=== PATIENT | female | born 1995 | race Caucasian/White ===

== ENCOUNTER 2018-12-26 20:48 | Inpatient (IN) | payer BC, OTHER ==
[~2018-12-26] VITALS: Ht 149.9 cm; Wt 44.6 kg
[2018-12-26 21:09] VITALS: Ht 149.9 cm; Wt 44.6 kg
--- NOTE | 2018-12-26 21:25 | NUR ---
PT MOVED FROM HALLWAY TO ED BED 8 AT THIS TIME FOR CLOSER MONITORING. PLACED ON FULL CM.
--- NOTE | 2018-12-26 21:28 | NUR ---
PT PRESENTS TO ED WITH C/O NAUSEA, VOMITING, AND GENERALIZED WEAKNESS. PT MOTHER STATES THAT SHE IS AUTISTIC. PT WAS OUTSIDE ALL DAY PLAYING IN A SOFTBALL GAME WHEN SHE BECAME DIZZY FELT WEAK, AND BEGAN VOMITING. PT MOTHER STATES THAT SHE WAS TAKEN OUT OF THE GAME TO REST AND WHEN THEY RETURNED HOME SHE TOOK A COLD SHOWER AND LAYED DOWN. PT BEGAN TO VOMIT AGAIN AT THIS TIME. PT NOTED WITH FINE TREMORS BUT STATES THAT SHE IS NOT COLD. PT HR NOTED AT 100 AT THIS TIME. PT DENIES PAIN ANYWHERE. PT RESTING IN A POSITION OF COMFORT WITH MOTHER AT SIDE. PLACED ON FULL CM. DR GARCIA AT BEDSIDE.
--- NOTE | 2018-12-26 21:50 | NUR ---
PT UNABLE TO PROVIDE URINE SAMPLE AT THIS TIME. PT DENIES ANY CHANCE OF .
[2018-12-26 21:58] LABS: BASOPHIL % 0.5 % (0-2); PLATELET COUNT 161 x10^3mcL (130-400); RED CELL DISTRIBUTION WIDTH 11.8 % (11.5-14.5)
[2018-12-26 22:11] LABS: ALBUMIN 3.6 g/dL (3.4-5.0); ALKALINE PHOSPHATASE 57 U/L (46-116); ALT/SGPT 17 U/L (14-59); AST/SGOT 22 U/L (15-37); BILIRUBIN TOTAL 0.5 mg/dL (0.20-1.00); CALCIUM 7.3 mg/dL (8.5-10.1); CARBON DIOXIDE 20.2 mmol/L (21-32); CHLORIDE SERUM 89 mmol/L (98-107); CREATININE SERUM 0.5 mg/dL (0.6-1.0); GFR1 > 60 mL/min; GLUCOSE SERUM 120 mg/dL (74-106)
[2018-12-26 22:14] LABS: POTASSIUM SERUM 2.3 mmol/L (3.5-5.1); SODIUM SERUM 122 mmol/L (136-145)
[2018-12-26] MEDS ORDERED: ZOLOFT50 MG PO (22:49)
[2018-12-26] MEDS ORDERED: CHLORPROMAZINE50 M1 PO (22:50)
[2018-12-26] MEDS ORDERED: TRAZODONE50 M1 PO (22:51)
[2018-12-26] MEDS ORDERED: OXCARBAZEPINE300 M1 PO (22:51)
[2018-12-26] MEDS ORDERED: VIS25 PO (22:51)
--- NOTE | 2018-12-26 22:52 | NUR ---
PT MOTHER STATES TO SODIUM CHLORIDE TABLETS BID 1000MG UNABLE TO FIND ON MED REC.
--- NOTE | 2018-12-26 23:03 | NUR ---
PT REPORT CALLED TO [facility] NURSE TO ASSUME PT CARE.
--- NOTE | 2018-12-26 23:11 | NUR ---
PT TRANSFERRED TO [facility] BY [facility] BY JULIAN VERA AND [facility] EMT. PT ON FULL CM FOR TRANSPORT. PT AOX4, RESP EVEN AND UNLABORED, NO ACUTE DISTRESS NOTED. PIPPA AWARE OF 2ND BAG OF POTASSIUM SENT WITH PT TO THE FLOOR. PT CARE TO BE CONTINUED BY PIPPA VERA. PT MOTHER AT BEDSIDE.
[2018-12-26 23:29] VITALS: BP 116/74
--- NOTE | 2018-12-26 23:32 | NUR ---
RECEIVED PT FROM ED VIA JOSE. ORIENTED PT TO ROOM AND SURROUNDINGS. IV NOTED TO LAC PATENT AND INTACT. INSTRUCTED PT ON THE USE OF CALL LIGHT FOR ASSISTANCE. ENDORSED PT TO PRIMARY NURSE PIPPA
--- NOTE | 2018-12-27 00:30 | NUR ---
RECEIVED PT FROM ER AAOX4 , PT DENY N/V AT THE MOMENT , PT CAME WITH K-RIDER 20MEQ 1ST BAG TA FOR 2HRS PER ER NURSE I'LL CON'T POTASSIUM INFUSION ORDERED .LUNG SOUNDS CTA , PIV INTACT . ABD SOFT BS ACTIVE X4 . ORIENTED PT TO THE ROOM CALL LIGHT WITHIN PT'S REACH .
--- NOTE | 2018-12-27 01:37 | NUR ---
1st BAG OF POTASSIUM STILL RA 30ML/HR PT'S NOT ABLE TO TOLERATE 50ML/HR ORDERED .
[2018-12-27 02:11] LABS: microscopic required? NO
[2018-12-27 02:31] LABS: UA SPECIFIC GRAVITY <=1.005 (1.005-1.035); urine erythrocyte NEGATIVE (NEGATIVE)
[2018-12-27 02:45] LABS: AMPHETAMINE QUAL UR NONE DETECTED (See below)
--- NOTE | 2018-12-27 03:42 | NUR ---
I HAVE REVIEWED THE DATA COLLECTION BY PROPERTY VALUER (NAME):PIPPA WARREN ENTERED ON (DATE/TIME): I CONCUR WITH THE DATA AND ANY EXCEPTIONS OR COMMENTS ARE LISTED BELOW:
--- NOTE | 2018-12-27 05:01 | NUR ---
3rd DOSE OF POTASSIUM 20MEQ/LIDOCAINE 1% GIVEN PT TOLERATED WELL . PT RECEIVED TOTAL OF 60MEQ OF POTASSIUM ORDERED . PT DENY N/V AT THE MOMENT , PIV INTACT INFUSING WELL .
[2018-12-27 05:44] VITALS: BP 101/63
[2018-12-27 07:16] LABS: BASOPHIL % 0.3 % (0-2); PLATELET COUNT 185 x10^3mcL (130-400); RED CELL DISTRIBUTION WIDTH 11.7 % (11.5-14.5)
--- NOTE | 2018-12-27 07:38 | NUR ---
RECEIVED SLEEPING BUT AROUSABLE. IN NO ACUTE RESP. DISTRESS. MOTHER AT BEDSIDE. VS WNL. IVF INFUSING WELL AND SITE CLEAR. CALL LIGHT WITHIN REACH. WILL CONTINUE WITH PLAN OF CARE.
[2018-12-27 07:42] LABS: CARBON DIOXIDE 20.8 mmol/L (21-32); CHLORIDE SERUM 108 mmol/L (98-107); CREATININE SERUM 0.5 mg/dL (0.6-1.0); GFR1 > 60 mL/min; GLUCOSE SERUM 94 mg/dL (74-106); MAGNESIUM 2.2 mg/dL (1.8-2.4); PHOSPHOROUS 3.3 mg/dL (2.5-4.9); POTASSIUM SERUM 4.3 mmol/L (3.5-5.1); SODIUM SERUM 140 mmol/L (136-145)
[2018-12-27 07:50] VITALS: BP 94/47
--- NOTE | 2018-12-27 12:00 | NUR ---
AM ROUNDS DONE BY DR. OMER AND MEDICAL TEAM. PLAN TO DC HOME TODAY. PT AGREED WITH PLAN. RESTING IN BED. NO ACUTE DISTRESS. NO C/O PAIN OR DISCOMFORT.
[2018-12-27 15:32] VITALS: BP 94/47
--- NOTE | 2018-12-27 15:44 | NUR ---
RESTING IN BED, NO DISTRESS NOTED. PT WILL BE DC'D HOME THIS PM. WAITING FOR PARENT TO PICK HER UP.
--- NOTE | 2018-12-27 16:42 | NUR ---
PT DC'D HOME WITH MOTHER IN NO DISTRESS, AWAKE AND ALERT. VS STABLE. PT TOLERATED WELL WITH MEALS. NO N/V NOR ABD. DISCOMFORT. DC INSTRUCTIONS REVIEWED WITH PT AND MOTHER. NO RX GIVEN. HL REMOVED AND SITE CLEAR WITH NO S/S OF REDNESS OR SWELLING. PERSONAL BELONGINGS TAKEN HOME.
== END 2018-12-27 16:33 | disposition home or self-care (01) | DRG 640 ==
LOC: ED 20:48 → MU 22:31
PROVIDERS: Emergency Medicine; ADMIT Internal Medicine
DX: E87.1 Hypo-osmolality and hyponatremia (principal); G93.41 Metabolic encephalopathy; Z68.1 Body mass index [BMI] 19.9 or less, adult; E86.0 Dehydration; F43.10 Post-traumatic stress disorder, unspecified; F41.9 Anxiety disorder, unspecified; E87.6 Hypokalemia; F32.9 Major depressive disorder, single episode, unspecified; E83.51 Hypocalcemia; F60.3 Borderline personality disorder; G47.00 Insomnia, unspecified; D64.9 Anemia, unspecified; Z87.891 Personal history of nicotine dependence; Z88.8 Allergy status to other drugs, medicaments and biological substances; Z79.899 Other long term (current) drug therapy
CPT/HCPCS: 82962; G0378; J2405; J3480; J7030; J7040; Q0161